=== PATIENT | male | born 2000 | race American Indian/Alaskan Native ===

== ENCOUNTER 2021-06-20 08:00 | Outpatient (CLI) | payer OTHER | END 2021-06-20 08:30 | disposition home or self-care (01) | LOC: PPH VACUNA 08:00 | PROVIDERS: ATTEND Emergency Medicine Pediatric Emergency Medicine | DX: Z23 Encounter for immunization (principal) ==

== ENCOUNTER 2021-12-20 09:09 | Emergency (ER) | payer OTHER ==
[~2021-12-20] VITALS: Ht 170.2 cm; Wt 120.7 kg
== END 2021-12-20 14:17 | disposition home or self-care (01) ==
LOC: EMR PED 09:09 → ER 09:09 → EMR PED 10:09
DX: M79.89 Other specified soft tissue disorders (principal)

== ENCOUNTER 2022-01-31 09:26 | Emergency (ER) | payer OTHER ==
[~2022-01-31] VITALS: Ht 170.2 cm; Wt 113.4 kg
== END 2022-01-31 12:00 | disposition home or self-care (01) ==
LOC: EMR PED 09:26
DX: S89.92XA Unspecified injury of left lower leg, initial encounter (principal); W19.XXXA Unspecified fall, initial encounter; Y93.9 Activity, unspecified; Y92.9 Unspecified place or not applicable; M25.462 Effusion, left knee